=== PATIENT | male | born 1970 | race Caucasian/White ===

== ENCOUNTER 2020-10-04 10:45 | Emergency (ER) | payer MEDICARE ==
--- NOTE | 2020-10-04 12:49 | RAD ---
Left ankle: 3 VIEWS INDICATION:Injury and pain COMPARISON:None FINDINGS: Mild soft tissue swelling. No evidence of fracture. No osseous abnormality identified. IMPRESSION: No evidence of fracture
== END 2020-10-04 13:43 | disposition home or self-care (01) ==
LOC: ERS 10:45
DX: M25.572 Pain in left ankle and joints of left foot (principal); E78.5 Hyperlipidemia, unspecified; E78.00 Pure hypercholesterolemia, unspecified; F17.210 Nicotine dependence, cigarettes, uncomplicated; Z79.899 Other long term (current) drug therapy

== ENCOUNTER 2020-10-12 13:05 | Emergency (ER) | payer MEDICARE ==
[2020-10-12] MEDS ORDERED: Naproxen 500 MG TAB ONE (13:47)
== END 2020-10-12 13:45 | disposition home or self-care (01) ==
LOC: ERS 13:05
DX: M25.512 Pain in left shoulder (principal)